=== PATIENT | female | born 1975 | race Caucasian/White ===

== ENCOUNTER 2017-03-04 11:30 | Outpatient (CLI) | payer BC | END 2017-03-04 11:31 | disposition home or self-care (01) | LOC: BICRAD 11:30 | PROVIDERS: ATTEND Family Medicine | DX: M79.642 Pain in left hand (principal) ==

== ENCOUNTER 2018-02-25 12:03 | Outpatient (CLI) | payer BC ==
--- NOTE | 2018-02-25 13:57 | RAD ---
THORACIC SPINE THREE VIEWS: History: Intervertebral disc displacement. Comparison: None. FINDINGS: No acute fracture. No malalignment. There is low grade intervertebral disc degeneration, predominately in the midthoracic spine. Paraspinal soft tissues unremarkable. 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 No acute fracture or malalignment. POS: [facility]
--- NOTE | 2018-02-25 14:11 | RAD ---
LUMBAR SPINE 2 VIEWS: Date: 02/25/18 HISTORY: Intervertebral disc displacement. COMPARISON: None. FINDINGS: No acute fracture or malalignment. Low grade narrowing of the posterior L5-S1 disc space. Mild facet arthropathy lower lumbar spine. No listhesis. Left upper quadrant and right upper quadrant surgical clips. 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 POS: [facility]
== END 2018-02-25 12:04 | disposition home or self-care (01) ==
LOC: BICRAD 12:03
PROVIDERS: ATTEND Family Medicine
DX: M54.5 Low back pain (principal); M54.6 Pain in thoracic spine; M51.36 Other intervertebral disc degeneration, lumbar region; M51.34 Other intervertebral disc degeneration, thoracic region
CPT/HCPCS: 72072; 72100

== ENCOUNTER 2019-11-08 14:10 | Outpatient (CLI) | payer BC ==
--- NOTE | 2019-11-08 17:22 | MRI ---
MRI OF THE LEFT SHOULDER PERFORMED WITHOUT CONTRAST ENHANCEMENT: 11/08/19 HISTORY: Left shoulder pain with decreased range of motion for a couple of months getting worse. No trauma and no surgeries. 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 The supra as well as infraspinatus tendons are intact. Subscapularis muscle and tendon are intact and the biceps tendon is normal in position within the bic ipital groove. The bicipital labral complex is intact. I do not see any signs of any SLAP type tear. There is some m ild effacement to the fat near the rotator cuff interval. There is also some edema change near the hu meral attachment of the anterior glenohumeral ligament axillary pouch region. No labral findings. IMPRESSION: 1. No evidence of rotator cuff or labral tear. 2. Findings that would suggest a mild capsulitis. POS: [facility]
== END 2019-11-08 14:11 | disposition home or self-care (01) ==
LOC: BICMRI 14:10
PROVIDERS: ATTEND Orthopaedic Surgery
DX: M75.112 Incomplete rotator cuff tear or rupture of left shoulder, not specified as traumatic (principal)

== ENCOUNTER 2024-10-31 09:08 | Outpatient (CLI) | payer BC ==
[~2024-10-31 09:08] MED LIST: Barium Sulfate 96% 176 GM BOT (xray ONLY) ONE; E-Z-HD 98% W/W 340GM BOT (x-ray ONLY) ONE
== END 2024-10-31 09:09 | disposition home or self-care (01) ==
LOC: RAD 09:08
PROVIDERS: ATTEND Surgery
DX: K21.00 Gastro-esophageal reflux disease with esophagitis, without bleeding (principal); K44.9 Diaphragmatic hernia without obstruction or gangrene
CPT/HCPCS: 74220